=== PATIENT | male | born 1965 | race Caucasian/White ===

== ENCOUNTER 2025-09-02 18:24 | Emergency (ER) | payer OTHER ==
[~2025-09-02] VITALS: Ht 172.7 cm; Wt 101.8 kg
[2025-09-02 18:26] VITALS: BP 162/82; PULSE 91; RESP 16; TEMP 98.3; O2SAT 95
--- NOTE | 2025-09-02 19:16 | DVH ---
CLINICAL HISTORY: head injury TECHNIQUE: Helical scanning was performed of the head from the skull base to the vertex. Multiplanar reconstructions were performed. This exam was performed according to our departmental dose optimizat ion program. Up-to-date CT equipment and radiation dose reduction techniques are utilized as appropri ate. CTDI 58 DLP 1052 COMPARISON: None FINDINGS: There is no evidence for acute intracranial hemorrhage, acute ischemic changes, mass, mass effect, or extra-axial fluid collection. There is no hydrocephalus or midline shift. There is no effacement of the cerebral sulci and basal subarachnoid cisterns. The hernández-white matter differentiation is well abhijit ntained. The imaged paranasal sinuses are clear. There is an old left lamina papyracea fracture. IMPRESSION: NO ACUTE INTRACRANIAL ABNORMALITY SEEN.
[2025-09-02] MEDS ORDERED: CEPH500C PO (20:16)
[2025-09-02] MEDS ORDERED: ACET500T58 PO (20:16)
--- NOTE | 2025-09-02 20:16 | ED.PDOC ---
HPI Comments 60 year old male presents to ER with complaints of laceration to scalp x 1 day. Patient states he accidentally hit his posterior scalp against the corner of a "loading dock" at 4 p.m. prior to arrival to ER at work and sustained laceration to posterior scalp at that time. Denies LOC and denies use of blood thinners. Patient currently complains of 3/10 pain localized to laceration to occipital scalp and denies use of medications for current symptoms. Patient presents to ER alert and oriented x4, with steady gait, in no distress and notes he is unsure when his last tetanus shot was. Denies headache, neck pain, numbness/tingling, dizziness, vision changes, confusion or any further symptoms/complaints Chief Complaint: Head Injury Time Seen by MD: 18:33 Primary Care Provider: UNKNOWN Reviewed Notes: Nurses Notes, Medications, Allergies Allergies: Coded Allergies: NO KNOWN ALLERGIES (Unverified , 09/02/25) Home Meds Active Scripts Cephalexin Monohydrate (Cephalexin) 500 Mg Cap, 1 CAP PO BID for 7 Days, #14 CAP 0 Refills Prov:KWABENA FELIZ 09/02/25 Acetaminophen (Acetaminophen) 500 Mg Tab, 500 MG PO Q4HPRN, #30 TAB 0 Refills Prov:KWABENA FELIZ 09/02/25 Information Source: Patient Mode of Arrival: Ambulatory Complexity: Simple Laceration Length (cm): 1 Past Medical History PAST MEDICAL HISTORY: Denies Surgical History: Hernia Repair Family History Family History: Unknown Social History Smoker: Non-Smoker Alcohol: Denies ETOH Use Drugs: Denies Drug Use Lives In: Home Constitutional: denies: chills, diaphoresis, fatigue, fever, malaise, sweats, weakness, others EENTM: denies: blurred vision, double vision, ear bleeding, ear discharge, ear drainage, ear pain, ear ringing, eye pain, eye redness, hearing loss, mouth pain, mouth swelling, nasal discharge, nose bleeding, nose congestion, nose pain, photophobia, tearing, throat pain, throat swelling, voice changes, others Respiratory: denies: cough, hemoptysis, orthopnea, SOB at rest, shortness of breath, SOB with excertion, stridor, wheezing, others Cardiovascular: denies: chest pain, dizzy spells, diaphoresis, Dyspnea on exertion, edema, irregular heart beat, left arm pain, lightheadedness, palpitations, PND, syncope, others Gastrointestinal: denies: abdomen distended, abdominal pain, blood streaked bowels, constipated, diarrhea, dysphagia, difficulty swallowing, hematemesis, melena, nausea, poor appetite, poor fluid intake, rectal bleeding, rectal pain, vomiting, others Genitourinary: denies: burning, dysuria, flank pain, frequency, hematuria, incontinence, penile discharge, penile sore, pain, testicle pain, testicle swelling, urgency, others Neurological: reports: others (As stated in HPI) Musculoskeletal: denies: back pain, gout, joint pain, joint swelling, muscle pain, muscle stiffness, neck pain, others Integumetry: reports: others (As stated in HPI) Allergic/Immunocompromised: denies: Difficulty Healing, Frequent Infections, Hives, Itching, others Hematologic/Lymphatic: denies: anemia, blood clots, easy bleeding, easy bruising, swollen glands, others Endocrine: denies: excessive hunger, excessive sweating, excessive thirst, excessive urination, flushing, intolerance to cold, intolerance to heat, unexplained weight gain, unexplained weight loss, others Psychiatric: denies: anxiety, bipolar disorder, depression, hopeless, panic disorder, schizophrenia, sleepless, suicidal, others Physical Exam General Appearance: No Apparent Distress, Obese HEENT: PERRL/EOMI Neck: Full Range of Motion, Non-Tender, Normal Respiratory: Chest Non-Tender, Lungs Clear, No Accessory Muscle Use, No Respiratory Distress, Normal Breath Sounds Cardiovascular: No Murmur, No Gallop, Regular Rate/Rhythm Breast Exam: Deferred Gastrointestinal: NOT DONE Genitalia: Deferred Pelvic: Deferred Rectal: Deferred Extremities: Normal capillary refill, Normal range of motion Neurologic: Alert (GCS 15), buyer planner II-XII nml as Tested, No Motor Deficits, Normal Affect, Normal Mood, No Sensory Deficits Cerebellar Function: Normal Reflexes: Normal Skin: Dry, Warm, Other (1 cm laceration noted to occipital scalp. Slight TTP/swelling/erythema localized to wound edges. No further skin changes noted) Lymphatic: No Adenopathy Was a procedure done? Was a procedure done?: Yes Sedation Sedation?: No Laceration Repair : Location Occipital scalp Length 1 cm Anesthetic: Nothing Laceration Repair Prep: Saline, Betadine, by Irrigation (without any signs of foreign body) Laceration Repair: [place] (1 staple placed- patient tolerated well without any complication) Informed consent obtained: Yes Risks, benefits, and alternati: Yes Differential diagnosis Generic Laceration: Fracture Differential Diagnosis: Other (Subdural hematoma, subarachnoid hemorrhage) X-Ray, Labs, Meds, VS Vital Signs Date Time Temp Pulse Resp B/P (MAP) Pulse Ox O2 Delivery O2 Flow Rate FiO2 09/02/25 18:26 98.3 91 16 162/82 95 98.3 PATIENT: TOSHA TOLLIVERT: [id number]: [id number] : 1965 LOC: ER ROOM / BED: / AGE / SEX: 60 / M ADM STATUS: REG ER SERVICE 32 ORDERING PHYSICIAN: KWABENA FELIZ PROCEDURE(s): HWOCT - HEAD WITHOUT CONTRAST REASON: head injury ORDER NUMBER(s): [id number], ACCESSION NUMBER(s): [id number] CLINICAL HISTORY: head injury TECHNIQUE: Helical scanning was performed of the head from the skull base to the vertex. Multiplanar reconstructions were performed. This exam was performed according to our departmental dose optimization program. Up-to-date CT equipment and radiation dose reduction techniques are utilized as appropriate. CTDI 58 DLP 1052 COMPARISON: None FINDINGS: There is no evidence for acute intracranial hemorrhage, acute ischemic changes, mass, mass effect, or extra-axial fluid collection. There is no hydrocephalus or midline shift. There is no effacement of the cerebral sulci and basal subarachnoid cisterns. The ehrnández-white matter differentiation is well maintained. The imaged paranasal sinuses are clear. There is an old left lamina papyracea fracture. IMPRESSION: NO ACUTE INTRACRANIAL ABNORMALITY SEEN. ATED BY: CRYSTAL PINZON MD DICTATED DATE/TIME: 09/02/251912 SIGNED BY: CRYSTAL PINZON MD SIGNED DATE/TIME: 09/02/251912 CC: CT head without contrast reviewed Wound cleaning performed at bedside Wound care/cleaning discussed and advised Advised to follow up in seven days for removal of staple Patient refused Tdap in ER with all risks of refusing Tdap discussed Leena starks paperwork filled out Advised to follow up with PCP and worksierra's comp PCP in 1-2 days Patient verbalized understanding and agreeable with current plan of care Advised to return to ER immediately if symptoms worsen Images Reviewed?: Images reviewed and evaluated by me Time of 1ST Reevaluation: 19:54 Reevaluation 1ST: N/A Patient Education/Counseling: Diagnosis, Treatment, Prognosis, Need For Follow Up Family Education/Counseling: No Family Present Departure 1 Departure Time of Disposition: 20:14 Impression: Primary Impression: Laceration of scalp Qualified Codes: S01.01XA - Laceration without foreign body of scalp, initial encounter Disposition: HOME / SELF CARE / HOMELESS Condition: Stable e-Prescriptions Cephalexin Monohydrate (Cephalexin) 500 Mg Cap 1 CAP PO BID for 7 Days, #14 CAP 0 Refills Prov: KWABENA FELIZ 09/02/25 Acetaminophen (Acetaminophen) 500 Mg Tab 500 MG PO Q4HPRN, #30 TAB 0 Refills Prov: KWABENA FELIZ 09/02/25 Discharged With: Self Critical Care Note Critical Care Time?: No Stability Stability form required: No Heart Score Heart Score: Heart Score Response (Comments) Value History N/A 0 EKG N/A 0 Age N/A 0 Risk Factors N/A 0 Troponin N/A 0 Total 0 KWABENA FELIZ Sep 02, 2025 20:16
== END 2025-09-02 20:44 | disposition home or self-care (01) ==
LOC: ER 18:30
DX: S01.01XA Laceration without foreign body of scalp, initial encounter (principal); R42 Dizziness and giddiness; Z98.890 Other specified postprocedural states; X58.XXXA Exposure to other specified factors, initial encounter; Y93.89 Activity, other specified; Y92.89 Other specified places as the place of occurrence of the external cause; Y99.8 Other external cause status
CPT/HCPCS: 12001; 70450